=== PATIENT | female | born 1945 | race Caucasian/White ===

== ENCOUNTER 2018-03-14 20:26 | Inpatient (IN) | payer OTHER ==
[~2018-03-14] VITALS: Ht 162.6 cm; Wt 104.6 kg
[~2018-03-14 20:26] MED LIST: AMOXICILLIN500 M1 PO; ASPIRIN81 M2 PO; CENTRUM SILVER1 EAC3 PO; GLUCOPHAGE1000 MG PO; GLUCOTROL XL10 MG PO; JANUVIA100 MG PO; KENALOG,ARISTOC15 G1 TP; MIRALAX17 GM PO; PEPCID40 MG PO; PREDNISONE20 MG PO; VITAMIN E400 UNIT PO; ZESTRIL2.5 MG PO; ZOCOR40 MG PO
[2018-03-14 21:57] LABS: BASOPHIL (%) 0.4 % (0-1); BASOPHIL COUNT 0.1 K/uL (0-0.1); EOSINOPHIL (%) 0.2 % (0-5); HEMATOCRIT 42.1 % (36.0-46.0); HEMOGLOBIN 13.9 G/DL (11.9-15.5); IMMATURE GRANULOCYTE (%) 0.3 % (0.0-0.7); LYMPHOCYTE (%) 3.9 % (15-42); LYMPHOCYTE COUNT 0.6 K/uL (1.0-2.8); MCH 29.3 PG (29.0-34.0); MCV 88.8 FL (83-99); MONOCYTE (%) 6.7 % (3-12); MONOCYTE COUNT 1.1 K/uL (0-0.8); NEUTROPHIL (%) 88.5 % (45-76); NEUTROPHIL COUNT 14.1 K/uL (1.8-6.4); PLATELET COUNT 194 K/uL (156-360); RBC DIS.WIDTH-CV 14.1 % (11.8-14.6); RBC DIS.WIDTH-SD 45.3 % (39-53); RED BLOOD COUNT 4.74 M/uL (3.80-5.20); WHITE BLOOD COUNT 15.9 K/uL (4.1-10.2)
[2018-03-14 22:06] LABS: CHLORIDE 106 mEq/L (99-109); POTASSIUM 4.2 mEq/L (3.7-5.4); SODIUM 141 mEq/L (136-147)
[2018-03-14 22:08] LABS: GLUCOSE 127 mg/dL (70-99); TOTAL PROTEIN 6.5 g/dL (6.4-8.3)
[2018-03-14 22:10] LABS: TOTAL BILIRUBIN 0.6 mg/dL (0.0-1.0)
[2018-03-14 22:12] LABS: ALKALINE PHOSPHATASE 88 IU/L (3-129); CREATININE 1.4 mg/dL (0.6-1.3); GFR ESTIMATE (CALCULATED) 39 mL/min/
[2018-03-14 22:13] LABS: AST (GOT) 45 IU/L (2-34); UREA NITROGEN (BUN) 21 mg/dL (9-23)
[2018-03-14 22:14] LABS: DIRECT BILIRUBIN 0.2 mg/dL (0.0-0.3)
[2018-03-14 22:15] LABS: ALT (GPT) 55 IU/L (3-49)
[2018-03-14 22:18] LABS: TROP-I INTERPRETATION NEGATIVE
[2018-03-14 23:08] LABS: LIPASE 72 U/L (1.0-51.0)
[2018-03-15] MEDS ORDERED: LANTUS 3 M100 UNITS1 SC (04:02)
[2018-03-15] MEDS ORDERED: CELLCEPT500 MG PO (04:03)
[2018-03-15] MEDS ORDERED: PANTOPRAZOLE SO40 MG PO (04:04)
[2018-03-15] MEDS ORDERED: PREDNISONE5 MG PO (04:04)
[2018-03-15] MEDS ORDERED: PROGRAF1 MG PO (04:05)
[2018-03-15] MEDS ORDERED: ACTIGALL300 MG PO (04:06)
[2018-03-15] MEDS ORDERED: NOVOLOG PE100 UNITS/ SC (04:07)
[2018-03-15 04:42] LABS: BASOPHIL (%) 0.3 % (0-1); BASOPHIL COUNT 0.1 K/uL (0-0.1); EOSINOPHIL (%) 0.3 % (0-5); HEMATOCRIT 38.4 % (36.0-46.0); HEMOGLOBIN 12.3 G/DL (11.9-15.5); IMMATURE GRANULOCYTE (%) 0.3 % (0.0-0.7); LYMPHOCYTE (%) 8.6 % (15-42); LYMPHOCYTE COUNT 1.3 K/uL (1.0-2.8); MCH 28.7 PG (29.0-34.0); MCV 89.5 FL (83-99); MONOCYTE (%) 7.4 % (3-12); MONOCYTE COUNT 1.1 K/uL (0-0.8); NEUTROPHIL (%) 83.1 % (45-76); NEUTROPHIL COUNT 12.5 K/uL (1.8-6.4); PLATELET COUNT 175 K/uL (156-360); RBC DIS.WIDTH-CV 14.1 % (11.8-14.6); RBC DIS.WIDTH-SD 46.2 % (39-53); RED BLOOD COUNT 4.29 M/uL (3.80-5.20); WHITE BLOOD COUNT 15.1 K/uL (4.1-10.2)
[2018-03-15 05:02] LABS: CHLORIDE 108 mEq/L (99-109); POTASSIUM 4.7 mEq/L (3.7-5.4); SODIUM 141 mEq/L (136-147)
[2018-03-15 05:07] LABS: CREATININE 1.3 mg/dL (0.6-1.3); GFR ESTIMATE (CALCULATED) 43 mL/min/
[2018-03-15 05:08] LABS: UREA NITROGEN (BUN) 24 mg/dL (9-23)
[2018-03-15 05:13] LABS: GLUCOSE 215 mg/dL (70-99)
[2018-03-15 05:22] VITALS: BP 138/72
[2018-03-15 07:13] LABS: TROP-I INTERPRETATION NEGATIVE
[2018-03-15 07:34] VITALS: BP 134/65
[2018-03-15 11:20] LABS: TROP-I INTERPRETATION NEGATIVE; TROPONIN-I 0.09 ng/mL (0.0-0.30)
[2018-03-15 16:37] VITALS: BP 117/69
[2018-03-15 19:53] VITALS: BP 124/82
[2018-03-15 23:38] VITALS: BP 114/57
[2018-03-16 04:28] VITALS: BP 150/85
[2018-03-16 06:34] LABS: HEMATOCRIT 37.3 % (36.0-46.0); HEMOGLOBIN 12.1 G/DL (11.9-15.5); MCH 29.1 PG (29.0-34.0); MCHC 32.4 G/DL (30.0-36.0); MCV 89.7 FL (83-99); PLATELET COUNT 152 K/uL (156-360); RBC DIS.WIDTH-SD 45.9 % (39-53); RED BLOOD COUNT 4.16 M/uL (3.80-5.20); WHITE BLOOD COUNT 9.2 K/uL (4.1-10.2)
[2018-03-16 06:53] LABS: ALBUMIN 3.3 G/DL (3.2-4.8); ALKALINE PHOSPHATASE 72 IU/L (3-129); ALT (GPT) 31 IU/L (3-49); AST (GOT) 22 IU/L (2-34); DIRECT BILIRUBIN 0.1 mg/dL (0.0-0.3); TOTAL BILIRUBIN 0.5 MG/DL (0.0-1.0); TOTAL PROTEIN 5.3 G/DL (6.4-8.3)
[2018-03-16 07:30] VITALS: BP 129/76
[2018-03-16 11:23] VITALS: BP 135/65
[2018-03-16 20:10] VITALS: BP 137/74
[2018-03-16 23:08] VITALS: BP 158/88
[2018-03-17 03:46] VITALS: BP 139/67
[2018-03-17 06:37] LABS: HEMATOCRIT 36.9 % (36.0-46.0); HEMOGLOBIN 11.8 G/DL (11.9-15.5); MCH 28.2 PG (29.0-34.0); MCV 88.3 FL (83-99); PLATELET COUNT 158 K/uL (156-360); RBC DIS.WIDTH-CV 13.8 % (11.8-14.6); RBC DIS.WIDTH-SD 44.6 % (39-53); RED BLOOD COUNT 4.18 M/uL (3.80-5.20); WHITE BLOOD COUNT 7.1 K/uL (4.1-10.2)
[2018-03-17] MEDS ORDERED: VENTOLIN HFA18 GM IH (06:38)
[2018-03-17] MEDS ORDERED: LEVAQUIN750 MG PO (06:38)
[2018-03-17] MEDS ORDERED: FLAGYL500 MG PO (06:38)
[2018-03-17 07:47] VITALS: BP 103/69
== END 2018-03-17 14:35 | disposition home or self-care (01) | DRG 871 ==
LOC: EME → EDBD 20:26 → 3EAST 03-15 03:43 → EDOF 03-15 03:43 → ENRESERV 03-15 03:46 → 3EAST 03-15 05:12
PROVIDERS: Emergency Medicine; Hospitalist; Internal Medicine
DX: A41.9 Sepsis, unspecified organism (principal); J95.4 Chemical pneumonitis due to anesthesia; T41.0X5A Adverse effect of inhaled anesthetics, initial encounter; G93.41 Metabolic encephalopathy; N17.9 Acute kidney failure, unspecified; Z94.4 Liver transplant status; E11.65 Type 2 diabetes mellitus with hyperglycemia; J98.01 Acute bronchospasm; R50.82 Postprocedural fever; R09.02 Hypoxemia; R91.1 Solitary pulmonary nodule; I10 Essential (primary) hypertension; E78.5 Hyperlipidemia, unspecified; K75.81 Nonalcoholic steatohepatitis (NASH); E66.9 Obesity, unspecified; Z68.39 Body mass index [BMI] 39.0-39.9, adult; K74.60 Unspecified cirrhosis of liver; Z85.05 Personal history of malignant neoplasm of liver; Z85.42 Personal history of malignant neoplasm of other parts of uterus; Z86.11 Personal history of tuberculosis; Z90.710 Acquired absence of both cervix and uterus; Z88.0 Allergy status to penicillin; Z79.84 Long term (current) use of oral hypoglycemic drugs; Z79.899 Other long term (current) drug therapy
CPT/HCPCS: 70450; 71045; 71046; 71250; 80048; 80076; 80197 90; 81003; 82948; 83605; 83690; 83880; 84484; 85025; 85027; 87040; 87070; 87205; 87449; 93005; 94640; 94799; 99281; 99285; J0696; J1644; J1720; J1815; J7030; J7507; J7512; J7517; S0030